=== PATIENT | male | born 1950 | race Caucasian/White ===

== ENCOUNTER 2016-12-08 08:21 | Outpatient (CLI) | payer MEDICARE, OTHER ==
[2016-12-08] VITALS (8 sets, daily range): BP systolic 97–132; BP diastolic 65–83
[~2016-12-08] VITALS: Ht 188 cm; Wt 103.4 kg
[~2016-12-08 08:21] MED LIST: ALPR0.254 PO; ASPI81TA2 PO; MELO-150 PO; MOME13HF2 IH; TAMS0.4C2 PO
[2016-12-08] MEDS ORDERED: LEVO5TAB29 PO (08:40)
[2016-12-08] MEDS ORDERED: MOME13HF IH (08:40)
[2016-12-08 08:51] LABS: BASO % 0 % (0-3); EOS % 1 % (0-3); HEMATOCRIT 49.1 % (39.0-53.0); HEMOGLOBIN 16.9 g/dL (13.0-17.5); LYMPH # 11.2 x10^3/uL (1.0-4.8); LYMPH % 80 % (24-48); MEAN CORPUSCULAR HEMOGLOBIN 34 pg (25-35); MEAN CORPUSCULAR HGB CONC 35 g/dL (31-37); MEAN CORPUSCULAR VOLUME 98 fL (79-100); MONO % 0 % (0-9); NEUT % 18 % (31-73); PLATELET COUNT 203 x10^3/uL (140-400); RED BLOOD COUNT 5.03 x10^6/uL (4.30-5.70); RED CELL DISTRIBUTION WIDTH 15.4 % (11.5-14.5)
[2016-12-08 09:04] LABS: PROTHROMBIN TIME PATIENT 12.5 SEC (11.7-14.0)
[2016-12-08] MEDS ORDERED: LIDOCAINE 1% / SOD BICARB 8.4% 20 ML VIAL. IJ ONE ×2 (09:40→10:15)
[2016-12-08 09:41] LABS: PLT ESTIMATE ADEQUATE (ADEQUATE)
[2016-12-08] MEDS ORDERED: MIDAZOLAM HCL/PF 5 MG/5 ML VIAL. ONE (09:46)
[2016-12-08] MEDS ORDERED: FLUMAZENIL 0.5 MG/5 ML VIAL. IV ONE (09:46)
[2016-12-08] MEDS ORDERED: fentaNYL PF VIAL 250 MCG/5 ML VIAL ONE (09:46)
[2016-12-08] MEDS ORDERED: NALOXONE 0.4 MG/ML VIAL. ONE (09:46)
[2016-12-08] MEDS ORDERED: MIDAZOLAM HCL/PF 5 MG/5 ML VIAL. IV ONE (10:15)
[2016-12-08] MEDS ORDERED: fentaNYL PF VIAL 250 MCG/5 ML VIAL IV ONE (10:15)
--- NOTE | 2016-12-08 10:19 | PDOC ---
MODERATE SEDATION ASSESSMENT RISKS/ALTERNATIVES Risks/Alternatives Risks and alternatives of this type of sedation and procedure discussed with: RISK/ALTERNATIVES: Patient H & P ON CHART H & P H & P on chart and reviewed for co-morbid conditions and appropriate labs. H&P ON CHART: Yes STATUS PREG STATUS ASSESSED: N/A MEDS/ALLERGIES REVIEWED Meds/Allergies Reviewed Medications and Allergies including time and route of recently administered narcotics and sedatives. MEDS/ALLERGIES REVIEWED: Yes ASA RATING ASA RATING: II AIRWAY ASSESSMENT Airway Assessment Airway patency, oral function limitations, presence of caps, crowns, dentures, partials, and ability to extend neck assessed. AIRWAY ASSESSMENT: Yes MALLAMPATI SCORE MALLAMPATI SCORE: II PRE-SEDATION ASSESSMENT PRE-SEDATION ASSESSMENT: Yes LIZ ASTORGA MD Dec 08, 2016 10:19
--- NOTE | 2016-12-08 10:22 | PDOC1 ---
History and Physical Date of Procedure Date of Admission 12/08/[address] guided bone marrow asp/bx Indication Indication 65 YO male with lymphocytosis---? CLL History of Present Illness Reason for Visit Same Past Medical History Past Medical History See Nursing Pre procedure PMH Past Surgical History Past Surgical History See Nursing Pre procedure PSH Current Medications Current Medications Current Medications Lidocaine/Sodium Bicarbonate (Buffered Lidocaine 1%) 20 ml STK-MED ONCE IJ ; Start 12/08/16 at 09:40; Stop 12/08/16 at 09:41; Status DC Midazolam HCl (Versed) 5 mg STK-MED ONCE .ROUTE ; Start 12/08/16 at 09:46; Stop 12/08/16 at 09:47; Status DC Fentanyl Citrate (Fentanyl 5ml Vial) 250 mcg STK-MED ONCE .ROUTE ; Start at 09:46; Stop 12/08/16 at 09:47; Status DC Naloxone HCl (Narcan) 0.4 mg STK-MED ONCE .ROUTE ; Start 12/08/16 at 09:46; Stop 12/08/16 at 09:47; Status DC Flumazenil (Romazicon) 0.5 mg STK-MED ONCE IV ; Start 12/08/16 at 09:46; Stop 12/08/16 at 09:47; Status DC Lidocaine/Sodium Bicarbonate (Buffered Lidocaine 1%) 10 ml 1X ONCE IJ Last administered on 12/08/16t 10:12; Start 12/08/16 at 10:15; Stop 12/08/16 at 10:16; Status DC Midazolam HCl (Versed) 3 mg 1X ONCE IV Last administered on 12/08/16 10:13; Start 12/08/16 at 10:15; Stop 12/08/16 at 10:16; Status DC Fentanyl Citrate (Fentanyl 5ml Vial) 150 mcg 1X ONCE IV Last administered on 10:13; Start 12/08/16 at 10:15; Stop 12/08/16 at 10:16; Status DC Active Scripts Active Reported Xyzal (Levocetirizine Dihydrochloride) 5 Mg Tablet 5 Mg PO DAILY PRN Dulera 200 Mcg/5 Mcg Inhaler (Mometasone/Formoterol) 13 Gm Hfa.aer.ad 13 Gm IH BID Meloxicam 15 Mg Tablet 15 Mg PO DAILY Tamsulosin Hcl 0.4 Mg Cap.er.24h 0.4 Mg PO DAILY Allergies Allergies: Coded Allergies: No Known Drug Allergies (Unverified , 05/18/15) Physical Exam Vital Signs Vital Signs Date Time Temp Pulse Resp B/P (MAP) Pulse Ox O2 Delivery O2 Flow Rate FiO2 12/08/16 10:13 12 94 Nasal Cannula 3.0 12/08/16 10:09 69 12/08/16 09:12 98.6 132/83 (99) 98.6 Lungs: Clear to auscultation Heart: Regular rate Psych/Mental Status: Mental status NL Assessment Assessment 65 YO male with lymphocytosis, raising ? of CLL. Problems: Plan Plan CT guided bone marrow aspirate/bx, as requested by heme-ocn. LIZ ASTORGA MD Dec 08, 2016 10:22
--- NOTE | 2016-12-08 10:24 | PDOC ---
Exam Tongue Trimmer Tongue Trimmer Wilberto [employer] Freight Conductor Freight Isabell Pan Pre-Procedure Diagnosis Pre-Procedure Diagnosis 65 YO male with lymphocytosis---? CLL. Post-Procedure Diagnosis Post-Procedure Diagnosis Same Procedure Performed Procedure Performed CT guided bone marrow asp/bx Type of Anesthesia Type of Anesthesia Local + Mod sedation Estimated Blood Loss EBL: Minimal Specimens Specimans 6 cc bone marrow aspirate + 1 11G core bx-----to heme-path Condition of Patient Condition of Patient Stable. No apparent complication. Disposition Disposition Home from [facility] post recovery, if no problems. F/u with Dr Jean. Full report to follow. LIZ ASTORGA MD Dec 08, 2016 10:24
--- NOTE | 2016-12-08 12:08 | RAD ---
CT-guided power drill assisted bone marrow aspiration and biopsy Indication: 65-year-old male with lymphocytosis. CT-guided bone marrow aspirate/biopsy has been requested by hematology-oncology, to evaluate for CLL. Anesthesia: 30 minutes moderate sedation was provided utilizing a total of 3 mg Versed and 150 mcg fentanyl, IV. The patient was appropriately monitored by a qualified independent observer throughout the time of moderate sedation. Procedure: Informed consent was obtained from the patient. He was placed prone on the CT scanner. Preliminary noncontrast CT images were obtained through pelvis. A left posterior skin site suitable for CT-guided bone marrow aspirate/biopsy from posterior left iliac bone was selected and marked. That area was prepped and draped in the usual sterile fashion. Conscious sedation was provided with IV Versed and fentanyl. Using aseptic technique, local anesthesia, and CT guidance, and the [employer] power furniture delivery driver, successful percutaneous entry was achieved through posterior cortex of left iliac bone. Approximately 6 cc of bone marrow was promptly aspirated, and was submitted to hematology personnel in the CT suite. Using CT guidance, the [employer] power furniture delivery driver was then utilized to obtain a single, 11-gauge core biopsy sample from marrow cavity of left iliac bone. The biopsy sample was submitted to pathology in formalin. A sterile dressing was applied over the biopsy skin puncture site. Patient tolerated the procedure well without apparent complication. Impression: Successful, uneventful CT-guided bone marrow aspirate and biopsy, utilizing the [employer] power furniture delivery driver biopsy system, as described. PQRS compliance statement: One or more of the following individualized dose reduction techniques were utilized for this CT procedure: 1. Automated exposure control. 2. Adjustment of MA and/or KV according to patient size. 3. Iterative reconstruction technique.
== END 2016-12-08 11:02 | disposition home or self-care (01) ==
LOC: INTRAD 08:21
PROVIDERS: ATTEND Internal Medicine Hematology & Oncology
DX: D72.820 Lymphocytosis (symptomatic) (principal); J44.9 Chronic obstructive pulmonary disease, unspecified; J45.909 Unspecified asthma, uncomplicated; M19.90 Unspecified osteoarthritis, unspecified site; F41.9 Anxiety disorder, unspecified; Z72.89 Other problems related to lifestyle; Z79.01 Long term (current) use of anticoagulants
CPT/HCPCS: 36415; 38221; 77012; 85007; 85027; 85610; 88184; 88185; 88237; C1892; G0364; J2250; J3010

== ENCOUNTER 2017-07-01 11:29 | Emergency (ER) | payer MEDICARE, OTHER | END 2017-07-01 14:06 | disposition home or self-care (01) | LOC: ER 11:29 | DX: T80.1XXA Vascular complications following infusion, transfusion and therapeutic injection, initial encounter (principal); Y84.8 Other medical procedures as the cause of abnormal reaction of the patient, or of later complication, without mention of misadventure at the time of the procedure; Y92.89 Other specified places as the place of occurrence of the external cause | CPT/HCPCS: 93971; 99284-25 ==

== ENCOUNTER → 2017-08-21 | Outpatient (CLI) | payer MEDICARE, OTHER ==
[2017-08-21] MEDS: IOHEXOL 240 MG/ML 50ML VIAL. PO ×2 (11:45)
[2017-08-21] MEDS: IOHEXOL 300 MG/ML 100ML VIAL. IV ×2 (11:45)
== END | disposition home or self-care (01) ==
LOC: CT 11:10
DX: C67.8 Malignant neoplasm of overlapping sites of bladder (principal); J90 Pleural effusion, not elsewhere classified; J43.9 Emphysema, unspecified; I70.0 Atherosclerosis of aorta; K42.9 Umbilical hernia without obstruction or gangrene; R91.1 Solitary pulmonary nodule; R59.0 Localized enlarged lymph nodes; Z87.891 Personal history of nicotine dependence
CPT/HCPCS: 71260; 74177; Q9966; Q9967

== ENCOUNTER → 2017-09-01 | Outpatient (CLI) | payer MEDICARE, OTHER | END | disposition home or self-care (01) | LOC: US 15:18 | DX: M79.89 Other specified soft tissue disorders (principal); R60.0 Localized edema | CPT/HCPCS: 93971 ==

== ENCOUNTER → 2018-01-25 | Outpatient (CLI) | payer MEDICARE, OTHER ==
[~2018-01-25] MED LIST changes: -ALPR0.254 PO; -ASPI81TA2 PO; +CONTRAST GIVEN. MC; -MELO-150 PO; -MOME13HF2 IH; -TAMS0.4C2 PO
[2018-01-25 08:46] LABS: POC GLUCOSE 95 mg/dL (70-99)
[2018-01-25] MEDS: IOHEXOL 300 MG/ML 100ML VIAL. IV (09:00)
[2018-01-25] MEDS: IOHEXOL 240 MG/ML 50ML VIAL. PO (09:00)
== END | disposition home or self-care (01) ==
LOC: CT 07:47
DX: C67.8 Malignant neoplasm of overlapping sites of bladder (principal); J43.2 Centrilobular emphysema; N40.0 Benign prostatic hyperplasia without lower urinary tract symptoms; K76.0 Fatty (change of) liver, not elsewhere classified; I25.10 Atherosclerotic heart disease of native coronary artery without angina pectoris; R91.1 Solitary pulmonary nodule; R59.0 Localized enlarged lymph nodes; Z85.118 Personal history of other malignant neoplasm of bronchus and lung; Z87.891 Personal history of nicotine dependence
CPT/HCPCS: 71260; 74177; 82962; Q9966; Q9967

== ENCOUNTER → 2018-07-25 | Outpatient (CLI) | payer MEDICARE, OTHER ==
[2017-10-25 11:00] VITALS: BP 122/65
[~2018-07-25] MED LIST changes: +ALPR0.254 PO; +ASPI-630 PO; -CONTRAST GIVEN. MC; +HYDR-3164 PO; +IOHEXOL 240 MG/ML 50ML VIAL. PO ONE; +IOHEXOL 300 MG/ML 100ML VIAL. IV ONE; +LEVO5TAB29 PO; +MELO15TA23 PO; +MOME13HF IH; +MOME13HF2 IH; +TAMS0.4C2 PO
--- NOTE | 2018-07-25 16:53 | RAD ---
CT of the chest, abdomen and pelvis with contrast, 07/25/2018: HISTORY: Lung cancer, bladder cancer, leukemia Multidetector CT imaging was performed following oral and IV administration of contrast. Comparison is made to a study from 01/25/2018. There are emphysematous changes in the lungs with scattered parenchymal scars. A 7 mm soft tissue nodule in the right middle lobe is unchanged since the previous study. No new pulmonary nodularity or infiltrate is seen. Previously seen right-sided pleural fluid has nearly completely resolved. There is mild residual pleural thickening in the posterior costophrenic angle on the right. There is bilateral axillary adenopathy. These nodes have increased in size. The largest lymph node on the left measures 2.7 cm in short axis dimension compared to a measurement of 2 cm on the previous study. The largest lymph node on the right measures 1.9 x 3.2 cm compared to a measurement of 1.1 x 2.4 cm on the previous study. There are multiple small mediastinal and bilateral hilar lymph nodes which appear unchanged. A cluster in the subcarinal region measures 1.3 cm in short axis dimension, similar to that seen on the previous study. The other smaller lymph nodes also appear stable. Moderate coronary artery calcifications are present. No hepatic abnormality is seen. The gallbladder is unremarkable. The pancreas shows no abnormality. The spleen is of normal size. No renal or adrenal abnormality is detected. There are numerous enlarged retroperitoneal, mesenteric and bilateral iliac lymph nodes which have generally increased in size. The largest individual mesenteric lymph nodes now measure nearly 3 cm in diameter. A left external iliac node which measured 2.1 x 3.8 cm on the previous study now measures 2.8 x 4.0 cm. There is moderate aortoiliac calcific plaquing. The prostate gland is moderately enlarged. The bowel loops are not distended. No free fluid is evident in the abdomen or pelvis. Moderate multilevel hypertrophic degenerative changes are present in the spine. IMPRESSION: 1. Worsening bilateral axillary, retroperitoneal, mesenteric and pelvic adenopathy. 2. Stable small right middle lobe pulmonary nodule. 3. Stable mild mediastinal adenopathy. 4. Resolution of the previously seen small right pleural effusion. 5. Emphysema with pleural/parenchymal scarring. 6. Nonspecific prostatic enlargement. PQRS Compliance Statement: One or more of the following individualized dose reduction techniques were utilized for this examination: 1. Automated exposure control 2. Adjustment of the mA and/or kV according to patient size 3. Use of iterative reconstruction technique Electronically signed by: Sterling Pederson MD (07/25/2018 4:49 PM) [facility]
== END | disposition home or self-care (01) ==
LOC: CT 08:24
PROVIDERS: ATTEND Internal Medicine Hematology & Oncology
DX: C34.11 Malignant neoplasm of upper lobe, right bronchus or lung (principal); J43.8 Other emphysema; R91.1 Solitary pulmonary nodule; I25.10 Atherosclerotic heart disease of native coronary artery without angina pectoris; N40.0 Benign prostatic hyperplasia without lower urinary tract symptoms; Z88.8 Allergy status to other drugs, medicaments and biological substances; Z87.891 Personal history of nicotine dependence
CPT/HCPCS: 71260; 74177; Q9966; Q9967

== ENCOUNTER → 2018-08-23 | Outpatient (CLI) | payer MEDICARE, OTHER ==
[2017-10-25 11:00] VITALS: BP 122/65
[~2018-08-23] MED LIST changes: -IOHEXOL 240 MG/ML 50ML VIAL. PO ONE; -IOHEXOL 300 MG/ML 100ML VIAL. IV ONE
--- NOTE | 2018-08-23 14:46 | RAD ---
FDG tumor localization scan, PET/CT, 08/23/2018: History: Restaging lung cancer Following IV injection of 12.0 mCi of 18 F-FDG, imaging was performed from the skull base to the proximal thighs. The noncontrast CT component was performed for attenuation correction and anatomic localization purposes rather than for primary diagnosis. The patient's blood glucose level at the time of injection was 102 MG/DL. No previous FDG/PET study is available at this time for comparison purposes. There are multiple enlarged hypermetabolic lymph nodes in both axillary regions, left greater than right. The largest individual node on the left axilla is a lobulated 4.3 cm node demonstrating a maximum SUV of 10.5. This node measured approximately 4.[address] chest study 07/25/2018. Some of the other nodes also appear to have increased slightly in size. There are additional smaller hypermetabolic supraclavicular and cervical lymph nodes bilaterally. Several small mediastinal and hilar lymph nodes are slightly hypermetabolic, best seen in the subcarinal and left hilar regions, with maximum SUVs of approximately 3.6. Normal GI tract and urinary tract activity is present in the abdomen and pelvis. Normal heterogeneous hepatic FDG uptake is evident. There are numerous hypermetabolic mesenteric, retroperitoneal and pelvic adenopathy bilaterally. For example a cluster of hypermetabolic lymph nodes at the left external iliac level demonstrates a maximum SUV of 6.5 with the largest of these in individual nodes measuring 4.[address] findings include the presence of moderate emphysematous change and scarring in the lungs. There is an unchanged 8 mm right middle lobe pulmonary nodule which is not hypermetabolic. Coronary artery calcifications are present. There is moderate nonspecific prostatic enlargement. IMPRESSION: 1. Extensive hypermetabolic abdominal, pelvic and axillary adenopathy with a lesser degree of hypermetabolic adenopathy in the mediastinum and neck. The findings suggest metastatic disease versus lymphoma. Many of these nodes have increased slightly in size since 07/25/2018 CT exam. 2. Stable small right middle lobe pulmonary nodule which is not hypermetabolic.
== END | disposition home or self-care (01) ==
LOC: PETSC 12:00
PROVIDERS: ATTEND Internal Medicine Hematology & Oncology
DX: C34.11 Malignant neoplasm of upper lobe, right bronchus or lung (principal); C91.90 Lymphoid leukemia, unspecified not having achieved remission; N40.0 Benign prostatic hyperplasia without lower urinary tract symptoms; J43.9 Emphysema, unspecified; I25.10 Atherosclerotic heart disease of native coronary artery without angina pectoris
CPT/HCPCS: 78815; A9552

== ENCOUNTER 2018-09-05 05:54 | Day surgery (SDC) | payer MEDICARE, OTHER ==
[~2018-09-05] VITALS: Ht 185.4 cm; Wt 114.3 kg
[2018-09-05] MEDS ORDERED: PROPOFOL 20 ML IV ONE (06:59)
[2018-09-05] MEDS ORDERED: DEXAMETHASONE SOD PHOS 20 MG/5 ML VIAL. ONE (06:59)
[2018-09-05] MEDS ORDERED: ONDANSETRON PF 4 MG/2 ML VIAL. ONE (06:59)
[2018-09-05] MEDS ORDERED: LIDOCAINE 2% PF 5 ML VIAL. ONE (06:59)
[2018-09-05] MEDS ORDERED: HYDROmorphone 2 MG/ML VIAL IV PRN (07:00)
[2018-09-05] MEDS ORDERED: PROCHLORPERAZINE 10 MG/2 ML VIAL. IV PRN (07:00)
[2018-09-05] MEDS ORDERED: fentaNYL PF VIAL 100 MCG/2 ML VIAL IV PRN (07:00)
[2018-09-05] MEDS ORDERED: ONDANSETRON PF 4 MG/2 ML VIAL. IV PRN (07:00)
[2018-09-05] MEDS ORDERED: IV RINGERS,LACTATED 1000ML 1,000 ML IV SCH (07:00)
[2018-09-05] MEDS ORDERED: LIDOCAINE 1% PF 2 ML VIAL. ID PRN (07:00)
[2018-09-05] MEDS ORDERED: MORPHINE SULFATE 4 MG/ML VIAL. IV PRN (07:00)
[2018-09-05] MEDS ORDERED: ISOSULFAN BLUE 50 MG/5 ML VIAL. SQ ONE (07:02)
[2018-09-05] MEDS ORDERED: SEVOFLURANE > 120 MINUTES. IH ONE (07:25)
[2018-09-05] MEDS ORDERED: fentaNYL PF VIAL 100 MCG/2 ML VIAL ONE ×2 (07:32→08:41)
--- NOTE | 2018-09-05 08:24 | PDOC4 ---
Operative Note Operative Note Operative Note: Preoperative Diagnosis: Lymphadenopathy Postoperative Diagnosis: Same Procedure: Left axillary lymph node biopsy Surgeon: Ricky Doll Dresser: Nereyda JOHNSON Anesthesia: Gen. EBL: 25 mL Specimen: Left axillary lymph node to pathology Drains: None Complications: None Indication: The patient is a 67-year-old male who has a known history of CLL. He developed recently widespread lymphadenopathy and a request is made for lymph node biopsy for tissue diagnosis. The adenopathy is particular prominent in the left axilla and we will therefore proceed with a biopsy in that location. The risks of surgery were discussed with the patient which include bleeding, infection, swelling, seroma, pain, potential need for additional surgery or procedure. He understands and would like to proceed Description: The patient was taken to the operating room and placed supine on the operating table. Gen. anesthesia was performed. The left axilla was prepped with ChloraPrep and draped in a standard surgical manner. An incision was made in the skin with a scalpel. Cautery dissection was carried down into the subcutaneous tissues. There were fairly obvious significantly enlarged lymph nodes present. Cautery dissection was used to mobilize a plastic products sales representative lymph node. In reality we likely excised two conjoined lymph nodes. The lymph nodes were mobilized from the surrounding structures with cautery. The vascular pedicle was ligated with 2-0 Vicryl and the lymph nodes were fully excised. These were sent to pathology for evaluation. Hemostasis was achieved with cautery. There were some remaining palpably enlarged lymph nodes however no other abnormalities noted. The subcutaneous tissue was closed with 3-0 Vicryl. The skin was closed with 4-0 Monocryl. The incision was infiltrated with half percent Marcaine with epinephrine. A Steri-Strip and sterile dressing were applied. The patient tolerated the procedure well and was sent to the recovery room in stable condition. At the end of the case all counts were correct. KIESHA EDUARDO MD Sep 05, 2018 08:24
--- NOTE | 2018-09-05 08:33 | DISCH ---
DISCHARGE INSTRUCTIONS Condition on Discharge Condition on Discharge: Stable Activity After Discharge Activity Instructions for Disc: Resume previous activity Diet after Discharge Diet after Discharge: Regular Wound Incision Care Wound/Incision Care: Other, see below (keep dressing clean and dry X 72 hours, may then remove and shower) Follow-Up Follow up with: Dr Eduardo in office in1 week, call for appt, KIESHA EDUARDO MD Sep 05, 2018 08:33
[2018-09-05] MEDS: fentaNYL PF VIAL 100 MCG/2 ML VIAL IV PRN ×2 (08:42→08:56)
[2018-09-05] MEDS ORDERED: HYDR-3164 PO (08:55)
[2018-09-05] MEDS ORDERED: HYDROcodone/APAP 5/325MG 1 TAB TABLET PO ONE (09:00)
[2018-09-05] MEDS ORDERED: HYDROcodone/APAP 5/325MG 1 TAB TABLET ONE (09:03)
[2018-09-05 09:25] VITALS: BP 111/76
--- NOTE | 2018-09-07 17:10 | PATHOLOGY ---
[facility] Accession Number: [id number] . 01 Material submitted: . LEFT AXILLARY LYMPH NODE . 01 Clinical history: . CLL/adenopathy . 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 LBQ/09/06/2018 . 02 Comment: Sections of the left axillary lymph node biopsy reveal four enlarged lymph nodes with focal attached perinodal fatty tissue. All of the lymph nodes appear similar and show diffuse mark effacement by an atypical lymphoid proliferation comprised of fairly uniform appearing small lymphocytes. The small lymphocytes have a high N/C ratio and rounded to slightly irregular hyperchromatic nuclei. There are fairly regularly distributed pale proliferation centers within the atypical lymphoid proliferation which contain admixed larger prolymphocytes. The atypical lymphoid proliferation focally spills out into the perinodal soft tissues. . A portion of the specimen was submitted for marker studies by flow cytometry. This has a viability of 99.1%. Lymphocytes comprise 99.5% of total cells. T-cells comprise 8.5% of total cells and show a CD4/CD8 ratio of 2.1. There is a population of small monoclonal B-cells which comprise 90.5% of total cells and are positive for CD5, CD11c, CD19, CD20 (dim), and CD23 and show dim kappa light chain restriction. . To confirm flow cytometric findings and characterize the target cells in a tissue architectural context, a limited panel of immunoperoxidase stains is obtained on block A2 and yields the following results: . CD20: Atypical small lymphoid proliferation positive PAX5: Atypical small lymphoid proliferation positive CD3: Atypical small lymphoid proliferative negative; small population of admixed small T-lymphocytes positive CD5: Atypical small lymphoid proliferation shows co-expression of CD5 CD23: Atypical small lymphoid proliferation positive Cyclin D1: Atypical small lymphoid proliferation negative . The morphologic and immunophenotypic findings are supportive of the diagnosis of mark involvement by B-cell chronic lymphocytic leukemia/small lymphocytic lymphoma. There is no evidence of transformation to large cell lymphoma. . (JPM/db/juana; 09/07/2018) . Special stains performed: Immunoperoxidase stains for CD20, PAX5, CD3, CD5, CD23, and cyclin D1 on A2 . 02 Electronically signed: . eBtito Rojas MD, Pathologist NPI- [id number] . 01 Gross description: . The specimen is received fresh and is designated "left axillary lymph node". This consists of two apparent enlarged pink-borjas lymph nodes with focal attached yellow-red fatty tissue. The smaller measures up to 4.7 cm in greatest dimension. The largest measures up to 6.4 x 3.5 x 2.3 cm in greatest dimension. Sectioning of the smaller specimen reveals a borjas fleshy cut surface. A touch preparation is prepared and submitted for H and E staining. Sectioning of the larger segment reveals three enlarged lymph nodes ranging from 2.0 cm up to 3.3 cm in greatest dimension. These lymph nodes also have a borjas fleshy cut surface. A touch preparation is prepared and submitted for H and E staining. A assisted sales representative portion from each of the nodes is submitted together in RPMI for lymphocyte marker studies by flow cytometry. Rn Recovery sections from the smaller node are submitted as A1 and A2. Rn Recovery sections from the larger segment containing three enlarged lymph nodes are submitted as A3-A5. (JPM:juana; 09/05/2018) /TOB . 02 Pathologist provided ICD-10: C91.10, C85.14 . 02 CPT . 026375, Q33870, L71974 Specimen Comment: A courtesy copy of this report has been sent to Specimen Comment: [phone], , . Specimen Comment: Report sent to ,DR RAMSEY / DR JIM Performed at: 01 [facility] [address], [place] [id number] MD Rahul Gilmore MD Phone: [phone] Performed at: 02 [facility] [address] [place], [place] [id number] MD Betito Rojas MD Phone: [phone]
== END 2018-09-05 09:28 | disposition home or self-care (01) ==
LOC: SURG 05:54
PROVIDERS: ATTEND Surgery
DX: C91.10 Chronic lymphocytic leukemia of B-cell type not having achieved remission (principal); I10 Essential (primary) hypertension; J44.9 Chronic obstructive pulmonary disease, unspecified; Z85.828 Personal history of other malignant neoplasm of skin; Z85.51 Personal history of malignant neoplasm of bladder; Z90.49 Acquired absence of other specified parts of digestive tract; Z98.890 Other specified postprocedural states; Z96.653 Presence of artificial knee joint, bilateral; Z82.49 Family history of ischemic heart disease and other diseases of the circulatory system; Z87.891 Personal history of nicotine dependence; Z88.5 Allergy status to narcotic agent; Z88.8 Allergy status to other drugs, medicaments and biological substances; Z85.118 Personal history of other malignant neoplasm of bronchus and lung
CPT/HCPCS: 38525; 88184; 88185; A7015; J0696; J1100; J2001; J2405; J2704; J3010; Q9968; 88307; 88341; 88342

== ENCOUNTER → 2019-03-28 | Outpatient (CLI) | payer MEDICARE, OTHER ==
[~2019-03-28] MED LIST changes: +CONTRAST GIVEN. MC PRN; +IOHEXOL 240 MG/ML 50ML VIAL. PO ONE; +IOHEXOL 300 MG/ML 100ML VIAL. IV ONE
--- NOTE | 2019-03-28 15:12 | RAD ---
EXAM: CT Chest, Abdomen and Pelvis with IV contrast CLINICAL HISTORY: CHRONIC LYMPHOCYTIC LEUKEMIA COMPARISON: None. TECHNIQUE: Helical CT of the chest, abdomen and pelvis was performed following the administration of intravenous contrast. Axial, coronal and sagittal reformatted images were generated. ---PQRS compliance statement - One or more of the following individualized dose reduction techniques were utilized for this study: 1. Automated exposure control 2. Adjustment of the mA and/or kV according to patient size 3. Use of iterative reconstruction technique--- FINDINGS: Chest: Compared to prior CT 07/25/2018, the degree of axillary lymphadenopathy has decreased. For example a left axillary lymph node measuring 1.2 cm short axis previously measured 2.7 cm. A right axillary lymph node measures 9 mm short axis, previously 1.8 cm short axis. Mildly prominent subcarinal lymph nodes have also mildly decreased in size. A 1.6 x 1.4 cm right infrahilar lymph node is seen, previously 2.7 x 1.7 cm. Emphysematous changes are seen. Chronic right lung lobectomy changes are seen. Linear and wedge-shaped opacities in the middle lobe likely scarring/atelectasis. A 7 mm middle lobe lung nodule is grossly stable. No pleural effusion or pneumothorax. Mild cardiomegaly. Aneurysmal dilatation of the ascending aorta measuring 4.2 cm is stable. Coronary artery calcifications are seen. Abdomen and Pelvis: No focal liver lesion. Hepatic hypoattenuation, likely hepatic steatosis. Gallbladder is normal. No biliary ductal dilatation. Spleen is unremarkable. Adrenal glands and pancreas are unremarkable. Symmetric nephrograms. No focal renal lesion. No hydronephrosis. Prostate is enlarged measuring 5.7 cm in transverse dimension. Focal nodular thickening of the left bladder, nonspecific and although may represent hemorrhagic products, underlying bladder mass is not excluded (series 8 image 76). There has been an appendectomy. No small or large bowel dilatation. Moderate colonic stool content. Fat-containing periumbilical hernia is seen with small volume fluid. Retroperitoneal, iliac chain and mesenteric lymph nodes are enlarged, but significantly decreased in size. For example a left external iliac lymph node measures 1.4 cm, previously 2.8 cm. Bones: Degenerative changes of spine, SI joints. No definite aggressive osseous lesion is seen. IMPRESSION: 1. Interval decrease in thoracic, abdominal and pelvic lymphadenopathy suggesting favorable response. 2. Nodular thickening at the left aspect of the bladder, although may represent focal hemorrhagic products, underlying bladder mass would have similar appearance. 3. Prostate is enlarged. Electronically signed by: Delio Zepeda MD (03/28/2019 3:09 PM) [facility]
== END | disposition home or self-care (01) ==
LOC: CT 08:19
PROVIDERS: ATTEND Internal Medicine Hematology & Oncology
DX: C34.11 Malignant neoplasm of upper lobe, right bronchus or lung (principal); C91.90 Lymphoid leukemia, unspecified not having achieved remission; J43.9 Emphysema, unspecified; N40.0 Benign prostatic hyperplasia without lower urinary tract symptoms; K42.9 Umbilical hernia without obstruction or gangrene; R59.0 Localized enlarged lymph nodes; I51.7 Cardiomegaly; I25.10 Atherosclerotic heart disease of native coronary artery without angina pectoris; Z88.8 Allergy status to other drugs, medicaments and biological substances; Z90.49 Acquired absence of other specified parts of digestive tract
CPT/HCPCS: 71260; 74177; Q9966; Q9967

== ENCOUNTER 2019-04-16 12:18 | Emergency (ER) | payer MEDICARE, OTHER ==
[~2019-04-16] VITALS: Ht 188 cm; Wt 112.9 kg
[~2019-04-16 12:18] MED LIST changes: -CONTRAST GIVEN. MC PRN; -IOHEXOL 240 MG/ML 50ML VIAL. PO ONE; -IOHEXOL 300 MG/ML 100ML VIAL. IV ONE
[2019-04-16 12:50] LABS: BILIRUBIN,URINE NEGATIVE (NEG); CLARITY,URINE CLEAR; NITRITE,URINE NEGATIVE (NEG); PH,URINE 7.5; PROTEIN,URINE NEGATIVE (NEG-TRACE); UROBILINOGEN,URINE 0.2 mg/dL (0.2 mg/dL)
[2019-04-16 12:57] LABS: COLOR,URINE RED
[2019-04-16 12:58] LABS: RBC,URINE TNTC /HPF (0-2)
[2019-04-16 12:59] LABS: HYALINE CASTS, URINE FEW /HPF
[2019-04-16 13:00] LABS: BACTERIA,URINE 0 /HPF (0-FEW)
[2019-04-16] MEDS ORDERED: CIPR250T30 PO (13:18)
--- NOTE | 2019-04-16 13:18 | PHYS DOC ---
Past Medical History Past Medical History: Cancer Additional Past Medical Histor: LUNG CA,CLL,BLADDERCA, SKINCA Past Surgical History: Cancer Surgery, Knee Replacement Additional Past Surgical Histo: HERNIA,TUMOR FROM BLADDER, BACK, LUNG CA, L KNEE REPLACEMENT, RT UP LOBECTO Alcohol Use: None Drug Use: None Adult General Chief Complaint Chief Complaint: URINARY RETENTION [facility] HPI Patient is a 68 year old male who presents with complaining of unable to urinate. Patient states he had prostate problem and had prostate surgery last week at [facility] and today his Almanza catheter was removed at [facility] this morning and he was able to urinate and was discharged home. Patient states he took water pills and since 10 AM was not able to urinate. Patient is diaphoretic and chest and complaining of severe suprapubic pain and discomfort. Review of Systems Review of Systems Constitutional: Denies fever or chills [] Eyes: Denies change in visual acuity, redness, or eye pain [] HENT: Denies nasal congestion or sore throat [] Respiratory: Denies cough or shortness of breath [] Cardiovascular: No additional information not addressed in HPI [] GI: Denies abdominal pain, nausea, vomiting, bloody stools or diarrhea [] : Denies dysuria or hematuria [] Musculoskeletal: Denies back pain or joint pain [] Integument: Denies rash or skin lesions [] Neurologic: Denies headache, focal weakness or sensory changes [] Endocrine: Denies polyuria or polydipsia [] All other systems were reviewed and found to be within normal limits, except as documented in this note. Allergies Allergies Allergies Coded Allergies Type Severity Reaction Last Updated Verified oxycodone Allergy Intermediate RASH 09/05/18 Yes rituximab Allergy Intermediate Hives 09/05/18 Yes Physical Exam Physical Exam Constitutional: Well developed, well nourished, distress, non-toxic appearance. [] HENT: Normocephalic, atraumatic. Eyes: PERRLA, EOMI, conjunctiva normal, no discharge. [] Neck: Normal range of motion, no tenderness, supple, no stridor. [] Cardiovascular:Heart rate regular rhythm, no murmur [] Lungs & Thorax: Bilateral breath sounds clear to auscultation [] Abdomen: Bowel sounds normal, soft, suprapubic tenderness , no tenderness, no masses, no pulsatile masses. [] Skin: Diaphoretic Back: No tenderness, no CVA tenderness. [] Extremities: No tenderness, no cyanosis, no clubbing, ROM intact, no edema. [] Neurologic: Alert and oriented X 3, no focal deficits noted. [] Psychologic: Affect normal, judgement normal, mood normal. [] Current Patient Data Vital Signs Vital Signs Date Time Temp Pulse Resp B/P (MAP) Pulse Ox O2 Delivery O2 Flow Rate FiO2 04/16/19 13:23 92 17 92 04/16/19 12:20 97.7 158/98 (118) Room Air 97.7 Lab Values Laboratory Tests Test 04/16/19 12:36 Urine Collection Type Unknown Urine Color Red Urine Clarity Clear Urine pH 7.5 Urine Specific Peyton 1.010 Urine Protein Negative mg/dL (NEG-TRACE) Urine Glucose (UA) Negative mg/dL (NEG) Urine Ketones (Stick) Negative mg/dL (NEG) Urine Blood Large (NEG) Urine Nitrite Negative (NEG) Urine Bilirubin Negative (NEG) Urine Urobilinogen Dipstick 0.2 mg/dL (0.2 mg/dL) Urine Leukocyte Esterase Trace (NEG) Urine RBC Tntc /HPF (0-2) Urine WBC 11-20 /HPF (0-4) Urine Bacteria 0 /HPF (0-FEW) Urine Hyaline Casts Few /HPF Urine Mucus Slight /LPF EKG EKG [] Radiology/Procedures Radiology/Procedures [] Course & Med Decision Making Course & Med Decision Making Pertinent Labs reviewed. (See chart for details) Evaluation of patient in ER showed 68-year-old male patient with complaining of urinary retention after removing Almanza catheter after prostate surgery. Patient was diaphoretic and discomfort and 40 3 was placed with drainage of 650 ml of pink urine with improvement of his condition. Patient was sent home with Almanza catheter in place and was advised to follow up with his primary care physician and urologist. Dragon Disclaimer Dragon Disclaimer This electronic medical record was generated, in whole or in part, using a voice recognition dictation system. Departure Departure Impression: Primary Impression: Urinary retention Additional Impression: Hematuria Disposition: HOME, SELF-CARE (at 1316) Condition: IMPROVED Referrals: ROLO RAMSEY MD (PCP) Patient Instructions: Almanza Catheter Care, Adult, Urinary Retention, Acute, Male Additional Instructions: Follow-up with your urologist in one or 2 days Return to ER if not getting better Scripts Ciprofloxacin Hcl (CIPRO) 250 Mg Tablet 1 TAB PO BID for infection, #14 TAB Prov: HUONG SILVA MD 04/16/19 Problem Qualifiers Additional Impression: Hematuria Hematuria type: gross Qualified Codes: R31.0 - Gross hematuria HUONG SILVA MD Apr 16, 2019 13:18
[2019-04-16 13:23] VITALS: BP 107/70
== END 2019-04-16 13:31 | disposition home or self-care (01) ==
LOC: ER 12:18
DX: R31.0 Gross hematuria (principal); R33.9 Retention of urine, unspecified; Z98.890 Other specified postprocedural states; Z88.5 Allergy status to narcotic agent; Z88.8 Allergy status to other drugs, medicaments and biological substances
CPT/HCPCS: 51702; 81001; 87086; 99285-25

== ENCOUNTER 2019-04-24 06:55 | Emergency (ER) | payer MEDICARE, OTHER ==
[~2019-04-24] VITALS: Ht 188 cm; Wt 117.0 kg
[~2019-04-24 06:55] MED LIST changes: +CIPR250T30 PO
--- NOTE | 2019-04-24 08:02 | PHYS DOC ---
Past Medical History Past Medical History: Cancer, Prostatitis Additional Past Medical Histor: LUNG CA,CLL,BLADDERCA, SKINCA Past Surgical History: Cancer Surgery, Knee Replacement Additional Past Surgical Histo: HERNIA,TUMOR FROM BLADDER, BACK, LUNG CA, L KNEE REPLACEMENT, RT UP LOBECTO Alcohol Use: None Drug Use: None Adult General Chief Complaint Chief Complaint: URINE CATHETER PROBLEM HPI HPI Patient is a 68 year old male with Almanza catheter in place who presents with complaining of problem with his catheter. Patient had prostate procedure recently and had Almanza catheter placement that was removed yesterday by his urologist [facility] but was not able to urinate for 5 hours and another Almanza catheter was placed was stopped working since last night with mild amount of leaking urine around the catheter. Patient complaining of pressure feeling in specific area without nausea and vomiting and fever and chills. Review of Systems Review of Systems Constitutional: Denies fever or chills [] Eyes: Denies change in visual acuity, redness, or eye pain [] HENT: Denies nasal congestion or sore throat [] Respiratory: Denies cough or shortness of breath [] Cardiovascular: No additional information not addressed in HPI [] GI: Denies nausea, vomiting, bloody stools or diarrhea, reports abdominal pain [] : Reports hematuria Musculoskeletal: Denies back pain or joint pain [] Integument: Denies rash or skin lesions [] Neurologic: Denies headache, focal weakness or sensory changes [] Endocrine: Denies polyuria or polydipsia [] All other systems were reviewed and found to be within normal limits, except as documented in this note. Allergies Allergies Allergies Coded Allergies Type Severity Reaction Last Updated Verified oxycodone Allergy Intermediate RASH 09/05/18 Yes rituximab Allergy Intermediate Hives 09/05/18 Yes Physical Exam Physical Exam Constitutional: Well developed, well nourished, mild distress, non-toxic appearance. [] HENT: Normocephalic, atraumatic. Eyes: PERRLA, EOMI, conjunctiva normal, no discharge. [] Neck: Normal range of motion, no tenderness, supple, no stridor. [] Cardiovascular:Heart rate regular rhythm, no murmur [] Lungs & Thorax: Bilateral breath sounds clear to auscultation [] Abdomen: Bowel sounds normal, soft, suprapubic guarding, no tenderness, no masses, no pulsatile masses Almanza catheter in place without urine output Skin: Warm, dry, no erythema, no rash. [] Back: No tenderness, no CVA tenderness. [] Extremities: No tenderness, no cyanosis, no clubbing, ROM intact, no edema. [] Neurologic: Alert and oriented X 3, no focal deficits noted. [] Psychologic: Affect normal, judgement normal, mood normal. [] Current Patient Data Vital Signs Vital Signs Date Time Temp Pulse Resp B/P (MAP) Pulse Ox O2 Delivery O2 Flow Rate FiO2 04/24/19 08:12 94 20 119/71 (87) 94 Room Air 04/24/19 07:08 98.0 98.0 EKG EKG [] Radiology/Procedures Radiology/Procedures [] Course & Med Decision Making Course & Med Decision Making Evaluation of patient in ER showed 68-year-old male patient presented to ER with plugging Almanza catheter.Irrigation was done and 300 ML bloody urine was drained with decrease of hematuria and patient felt comfortable. Patient was advised to follow-up with his urologist. Patient currently taking antibiotic for UTI. Dragon Disclaimer Dragon Disclaimer This electronic medical record was generated, in whole or in part, using a voice recognition dictation system. Departure Departure Impression: Primary Impression: Obstruction of Almanza catheter Disposition: 01 HOME, SELF-CARE (at 0801) Condition: IMPROVED Referrals: ROLO RAMSEY MD (PCP) Patient Instructions: Almanza Catheter Care, Adult Additional Instructions: Follow-up with your urologist in 2-3 days Return to ER if not getting better Problem Qualifiers Primary Impression: Obstruction of Almanza catheter Encounter type: initial encounter Qualified Codes: T83.091A - Other mechanical complication of indwelling urethral catheter, initial encounter HUONG SILVA MD Apr 24, 2019 08:02
[2019-04-24 08:12] VITALS: BP 119/71
== END 2019-04-24 08:16 | disposition home or self-care (01) ==
LOC: ER 06:55
DX: T83.038A Leakage of other urinary catheter, initial encounter (principal); Z98.890 Other specified postprocedural states; Z88.5 Allergy status to narcotic agent; Z88.8 Allergy status to other drugs, medicaments and biological substances; Y82.8 Other medical devices associated with adverse incidents; Y92.89 Other specified places as the place of occurrence of the external cause
CPT/HCPCS: 99284

== ENCOUNTER 2019-05-07 23:39 | Emergency (ER) | payer MEDICARE ==
[~2019-05-07] VITALS: Ht 188 cm; Wt 115.7 kg
[2019-05-07 23:43] VITALS: BP 139/112
--- NOTE | 2019-05-08 00:24 | PHYS DOC ---
Past Medical History Past Medical History: Cancer, Prostatitis Additional Past Medical Histor: LUNG CA,CLL,BLADDERCA, SKINCA Past Surgical History: Cancer Surgery, Knee Replacement Additional Past Surgical Histo: HERNIA,TUMOR FROM BLADDER, BACK, LUNG CA, L KNEE REPLACEMENT, RT UP LOBECTO Alcohol Use: None Drug Use: None Adult General Chief Complaint Chief Complaint: URINARY RETENTION HPI HPI Patient is a 68 year old male with complaint of urinary retention. Patient had prostate procedure recently and had Almanza catheter placement that was removed today by his urologist at [facility]. He states he went home and his urinary stream has been getting smaller and smaller and he started developing pressure. Patient complaining of pressure feeling around bladder without nausea and vomiting and fever and chills. He rates his discomfort as 4/10 in severity. Review of Systems Review of Systems Constitutional: Denies fever or chills [] Eyes: Denies change in visual acuity, redness, or eye pain [] HENT: Denies nasal congestion or sore throat [] Respiratory: Denies cough or shortness of breath [] Cardiovascular: No additional information not addressed in HPI [] GI: Denies abdominal pain, nausea, vomiting, bloody stools or diarrhea [] : Reports urinary retention. Musculoskeletal: Denies back pain or joint pain [] Integument: Denies rash or skin lesions [] Neurologic: Denies headache, focal weakness or sensory changes [] Endocrine: Denies polyuria or polydipsia [] Complete systems were reviewed and found to be within normal limits, except as documented in this note. Allergies Allergies Allergies Coded Allergies Type Severity Reaction Last Updated Verified oxycodone Allergy Intermediate RASH 09/05/18 Yes rituximab Allergy Intermediate Hives 09/05/18 Yes Physical Exam Physical Exam Constitutional: Well developed, well nourished, no acute distress, non-toxic appearance. [] HENT: Normocephalic, atraumatic, bilateral external ears normal, oropharynx moist, no oral exudates, nose normal. [] Eyes: PERRLA, EOMI, conjunctiva normal, no discharge. [] Neck: Normal range of motion, no tenderness, supple, no stridor. [] Cardiovascular:Heart rate regular rhythm, no murmur [] Lungs & Thorax: Bilateral breath sounds clear to auscultation [] Abdomen: Bowel sounds normal, soft, no tenderness, no masses, no pulsatile masses. [] Skin: Warm, dry, no erythema, no rash. [] Back: No tenderness, no CVA tenderness. [] Extremities: No tenderness, no cyanosis, no clubbing, ROM intact, no edema. [] Neurologic: Alert and oriented X 3, normal motor function, normal sensory function, no focal deficits noted. [] Psychologic: Affect normal, judgement normal, mood normal. [] Current Patient Data Vital Signs Vital Signs Date Time Temp Pulse Resp B/P (MAP) Pulse Ox O2 Delivery O2 Flow Rate FiO2 05/07/19 23:43 98.4 72 23 139/112 (121) 96 Room Air 98.4 EKG EKG [] Radiology/Procedures Radiology/Procedures [] Course & Med Decision Making Course & Med Decision Making Pertinent Labs and Imaging studies reviewed. (See chart for details) The nurses bladder scanned the patient and got 0 mL of urine. Discussed with patient and the patient appears to be having bladder spasms. Will d/c home. Patient has bladder spasm medication at home that he will take. Discussed with patient that if he feels like he is retaining urine throughout the night to return to ER. Also discussed following up with his urologist in the AM. Dragon Disclaimer Dragon Disclaimer This electronic medical record was generated, in whole or in part, using a voice recognition dictation system. Departure Departure Impression: Primary Impression: Spastic bladder Disposition: 01 HOME, SELF-CARE Condition: STABLE Referrals: ROLO RAMSEY MD (PCP) Additional Instructions: Thank you for visiting [facility]. We appreciate you trusting us with your care. If any additional problems come up don't hesitate to return to visit us. Please follow up with your primary care provider so they can plan additional care if needed and know about the problem that you had. If symptoms worsen come back to the Emergency Department. Any concerning symptoms that start such as chest pain, shortness of air, weakness or numbness on one side of the body, running high fevers or any other concerning symptoms return to the ER. Please return to ER if you feel that you are retaining urine. CHARLENE COLBERT APRN May 08, 2019 00:24
== END 2019-05-08 00:42 | disposition home or self-care (01) ==
LOC: ER 23:39
DX: N32.89 Other specified disorders of bladder (principal); Z98.890 Other specified postprocedural states; Z88.5 Allergy status to narcotic agent; Z88.8 Allergy status to other drugs, medicaments and biological substances
CPT/HCPCS: 99284-25

== ENCOUNTER → 2019-10-03 | Outpatient (CLI) | payer MEDICARE ==
[~2019-10-03] MED LIST changes: +CONTRAST GIVEN. MC PRN; +IOHEXOL 240 MG/ML 50ML VIAL. PO ONE; +IOHEXOL 300 MG/ML 100ML VIAL. IV ONE
--- NOTE | 2019-10-03 13:36 | RAD ---
CT CHEST ABD PELVIS W/CONTRAST Indication: Chronic lymphocytic leukemia. Exposure: One or more of the following individualized dose reduction techniques were utilized for this examination: 1. Automated exposure control 2. Adjustment of the mA and/or kV according to patient size 3. Use of iterative reconstruction technique. Technique: Intravenous contrast was given. Oral contrast was given. Comparison: 03/28/2019. CHEST: Bilateral gynecomastia has mildly progressed since the prior study. Ascending aorta measures 4.2 cm transverse, compatible with mild ectasia, unchanged since prior study. Mild aortic calcification. No evidence of aortic dissection. Proximal great vessels are patent. Main central pulmonary arteries are grossly patent. Coronary artery calcifications are again identified. No dominant thyroid mass is identified. No pericardial effusion. No evidence of pleural effusion. Enlarged axillary lymph nodes are again identified bilaterally. These have slightly increased in size. For example, a left axillary lymph node now measures 10 mm as compared with 6 mm on prior study. Another left axillary lymph node measures 17 mm short axis as compared with 11 mm previously. Right axillary lymph node measures 11 mm short axis, compared with 8 mm previously. Small mediastinal and hilar lymph nodes appears similar to the previous exam. There is some irregular opacity in the anterior right lower lung, greater than the prior study. This could represent atelectasis or infiltrate, or some scarring. Note there were some markings are previously, but they have progressed since that time. There is a subpleural nodular component which measures 11 x 11 mm, series 2, image 39, which has increased in size since previous exam, when it measured 7 x 6 mm. Generalized emphysema. No new dominant pulmonary mass is identified. No evidence of pneumothorax. Trachea and mainstem bronchi are patent. Degenerative spondylosis. No evidence of aggressive bone destruction. Abdomen pelvis: Patchy hepatic hypoattenuation, likely due to asymmetric steatosis of the liver. There is an area of slightly greater density in the left lobe as compared with the prior study measuring about 5 cm diameter, may just represent relatively preserved parenchyma, hepatic mass considered much less likely. Spleen is unremarkable. Pancreas unremarkable. No evidence of adrenal mass. Kidneys demonstrate symmetric enhancement without focal mass or hydronephrosis. Gallbladder is not distended, no evidence of calcified gallstone. The aorta is mildly calcified. No evidence of aortic aneurysm. Mildly enlarged portal lymph nodes node anterior to the inferior vena cava measures 17 mm short axis, compared with 14 mm on prior study. Aortocaval lymph nodes are mildly enlarged. For example noted to the left of the aorta measures 12 mm short axis, as compared with 9 mm on prior study. Enlarged iliac nodes are again seen. Left iliac node measures 20 mm short axis, compared with 15 mm previously. Right external iliac node measures 17 mm short axis, compared with 15 mm previously. Numerous small retroperitoneal lymph nodes are again identified and appear roughly similar to the prior study. No significant small bowel distention. No evidence of acute colitis. The appendix is not clearly seen. Surgical clips in the right lower quadrant. No evidence of ascites. No evidence of pneumoperitoneum. Urinary bladder demonstrates mild wall thickening. Prostatomegaly again seen with a probable TURP defect. Previously seen nodular thickening of the left urinary bladder is not as apparent on today's exam. Degenerative spondylosis of the spine is again seen, appearance and alignment are similar to the prior study. No evidence of aggressive destructive bone lesion. Transitional anatomy at the lumbosacral junction. IMPRESSION: 1. Ascending aortic ectasia, appears similar. 2. Mild progression of axillary lymph node enlargement previous exam, concerning for progressive disease. 3. Increased opacity within the anterior right lung, could represent a combination of infiltrate and consolidation. Although difficult to separate from these changes, subpleural nodule in this area appears to measure larger than on the previous exam, now measuring 11 mm as compared with 7 mm previously, potentially due to metastatic disease. Recommend observation on follow-up scan. 4. Patchy hepatic density likely due to geographic steatosis. There is now a well-defined 5 cm area of relative hyperattenuation in the left lobe, likely just due to focal sparing. Hepatic mass is considered less likely, but recommend observation on follow-up scan, or could be evaluated sooner with hepatic MRI. 5. Mild worsening of portal, retroperitoneal, and iliac lymph node enlargement since prior study, concerning for progressive disease. 6. Urinary bladder wall thickening with prostatomegaly. This may be due to outlet obstruction. Electronically signed by: Alfredo Lucas MD (10/03/2019 1:33 PM) [id number]
== END | disposition home or self-care (01) ==
LOC: CT 09:47
PROVIDERS: ATTEND Internal Medicine Hematology & Oncology
DX: C34.11 Malignant neoplasm of upper lobe, right bronchus or lung (principal); R59.0 Localized enlarged lymph nodes; I25.10 Atherosclerotic heart disease of native coronary artery without angina pectoris; I70.0 Atherosclerosis of aorta; J43.9 Emphysema, unspecified; M47.816 Spondylosis without myelopathy or radiculopathy, lumbar region
CPT/HCPCS: 71260; 74177; Q9966; Q9967

== ENCOUNTER → 2020-01-03 | Outpatient (CLI) | payer MEDICARE ==
--- NOTE | 2020-01-03 12:56 | RAD ---
CT scan of the chest, abdomen and pelvis with contrast 01/03/2020 CLINICAL HISTORY: Chronic lymphocytic leukemia. History of lung cancer. TECHNIQUE: After the oral and intravenous administration of contrast, contiguous, 5 mm axial sections were obtained through the chest, abdomen and pelvis. One or more of the following individualized dose reduction techniques were utilized for this study: 1. Automated exposure control. 2. Adjustment of the mA and/or kV according to patient size. 3. Use of iterative reconstruction technique. FINDINGS: Comparison study is dated 10/03/2019. Atherosclerotic calcification of the thoracic aorta and its branches is noted. The thoracic aorta is tortuous but tapers normally. The heart is mildly enlarged. Scattered coronary artery calcifications are seen. Slightly prominent hilar and mediastinal lymph nodes are seen which measure 5 mm to 1.6 cm in size. These are unchanged. Enlarged axillary lymph nodes are seen which measure 1 to 2 cm in size. These have decreased in size since the previous examination where they measured 1.5 to 2.5 cm in size. The patient is post right upper lobectomy. Moderate bullous emphysematous changes are seen involving both lungs. A pulmonary nodule is seen within the anterior lateral aspect of the right middle lobe. This measures 9 mm in greatest diameter. It has decreased in size since the previous study where it measured 1.1 cm in size. The right middle lobe infiltrate/atelectasis seen on the previous study has largely resolved. Areas of scarring are seen involving both lower lobes. No new pulmonary nodule is seen. No area of consolidation is seen. No pleural effusion or pneumothorax is noted. The liver parenchyma has a decreased attenuation consistent with fatty infiltration. The liver is mildly enlarged measuring 20 cm in length. Increased enhancement is seen within the posterior aspect of the right lobe of the liver which is unchanged since the previous examination. No focal mass is definitely visualized. The spleen, adrenal glands and kidneys are within normal limits. Atherosclerotic calcification of the abdominal aorta is seen. The abdominal aorta tapers normally. The gallbladder is contracted. Air and stool are seen throughout the colon. The patient is post appendectomy. There is no evidence of bowel obstruction. Enlarged retroperitoneal, mesenteric and periportal lymph nodes are seen which measure 1 to 3 cm in size. These have decreased in size since the previous examination where they measured 1.5 to 4 cm in size. Images through the pelvis demonstrate the urinary bladder distended with urine. Surgical clips are seen in the left inguinal region. Calcifications are seen within the pelvis consistent with phleboliths. No free fluid is seen. Enlarged pelvic lymph nodes are seen, left greater than right, which measure 1 to 2.8 cm in greatest diameter. These have decreased in size since the previous examination where they measured 1.5 to 3.2 cm in size. No inguinal lymphadenopathy is seen. Very mild S-shaped curvature of the thoracolumbar spine is noted. Degenerative changes are seen involving the thoracic throughout the lumbar spine along with both hips. IMPRESSION: 1. Interval decrease in size of the axillary lymphadenopathy. 2. 9 mm nodule is seen within the right middle lobe which has decreased in size since the previous study. 3. Interval improvement in the retroperitoneal, mesenteric, periportal and pelvic lymphadenopathy. Electronically signed by: Bill Lundberg MD (01/03/2020 12:54 PM) [id number]
== END ==
LOC: CT 09:15
PROVIDERS: ATTEND Internal Medicine Hematology & Oncology
DX: C34.11 Malignant neoplasm of upper lobe, right bronchus or lung (principal); C91.10 Chronic lymphocytic leukemia of B-cell type not having achieved remission; R91.8 Other nonspecific abnormal finding of lung field; R59.0 Localized enlarged lymph nodes; I70.0 Atherosclerosis of aorta; R16.0 Hepatomegaly, not elsewhere classified; J43.9 Emphysema, unspecified
CPT/HCPCS: 71260; 74177; Q9966; Q9967

== ENCOUNTER → 2020-04-06 | Outpatient (CLI) | payer MEDICARE ==
--- NOTE | 2020-04-06 17:13 | RAD ---
EXAM: CT Chest, Abdomen, and Pelvis with IV contrast INDICATION: Reason: LEUKEMIA. MALIGNANT NEOPLASM OF RIGHT LUNG / Spl. Instructions: IV OMNI 300 75 MLS AND PO OMNI 240 30 MLS / History: TECHNIQUE: Multi-detector row CT images were acquired from the thoracic inlet through the ischial tuberosities with the use of IV contrast. Sagittal and coronal images were acquired from the transaxial data. All CT scans performed at this facility utilize dose optimization techniques as appropriate to the exam, including the following: Automated exposure control and adjustment of the mA and/or KV according to patient size (this includes techniques or standardized protocols for targeted exams where dose is indication/reason for exam). IV CONTRAST: Administered ORAL CONTRAST: Administered COMPARISON: Chest abdomen pelvis CT with IV contrast of 01/03/2020 FINDINGS: CHEST: CARDIOVASCULAR: Stable ectasia of the ascending thoracic aorta at 4.4 cm diameter. Borderline heart enlargement without pericardial effusion, stable. Coronary artery calcifications. No filling defects in the main or central pulmonary arteries although contrast bolus opacification is not optimized. Bovine aortic arch. MEDIASTINUM & MICHELLE: Mild bilateral hilar adenopathy is present, slightly more conspicuous in the interval. Stable minimally prominent mediastinal lymph nodes. LUNGS: In the background of moderate panlobular pattern emphysema and previous right upper lobectomy is noted a new right upper lobe irregular nodule measuring 8 mm (axial image 14 of series 2) and marginally increase in size of a nodule along the major fissure in the left upper lobe measuring 7.5 mm (image 25 of series 2), up from 6.4 mm previously (image 24 of series 2 on the prior study). The previously reported 9 mm nodule in the right middle lobe is unchanged at 9 mm. PLEURAL SPACE: No pleural effusions or pneumothorax. OSSEOUS & SOFT TISSUE: Multilevel thoracic spinal degenerative changes. No fracture or aggressive osseous lesions. Mild bilateral gynecomastia is stable. Marginally increased left greater than right bilateral axillary adenopathy, as evidenced by greater cortical thickening in the dominant left level 1 axillary lymph node (image 13 series 2 this exam compared with image 18 series 2 on the prior study). ABDOMEN/PELVIS: LIVER: Diffuse fatty infiltration of focal sparing near the gallbladder fossa and inferior aspect of hepatic segment 3. BILIARY SYSTEM: Gallbladder is unremarkable. Bile ducts are not dilated. PANCREAS: Unremarkable SPLEEN: Unremarkable ADRENALS: Unremarkable KIDNEYS & URETERS: Unremarkable BLADDER: Unremarkable REPRODUCTIVE ORGANS: Prostate gland measures 5 cm transverse diameter. GASTROINTESTINAL: The stomach, small bowel, and colon are unremarkable. Appendix is surgically absent. MESENTERY/PERITONEUM/RETROPERITONEUM: Unremarkable VASCULAR: Unremarkable LYMPH NODES: Stable mild prominent mesenteric and periportal lymph nodes. The largest are apparent paracaval node measuring 3.9 x 1.6 cm (image 25 series 4, compared with image 66 of series 2 on the prior study). Stable mild pelvic adenopathy, largest representing a left external iliac lymph node measuring 1.3 cm in short axis diameter. OSSEOUS & SOFT TISSUES: Postoperative changes from left inguinal hernia repair. IMPRESSION: Right upper lobectomy and panlobular emphysema with marginal increase in lymphadenopathy in the chest and abdomen and a new apical segment right lower lobe 8 mm pulmonary nodule, for which short-term follow-up is recommended. Recommend chest CT in 3-6 months in further evaluation. Electronically signed by: Candice Richter MD (04/06/2020 5:10 PM) [id number]
== END | disposition home or self-care (01) ==
LOC: CT 08:55
PROVIDERS: ATTEND Internal Medicine Hematology & Oncology
DX: C34.11 Malignant neoplasm of upper lobe, right bronchus or lung (principal); C91.10 Chronic lymphocytic leukemia of B-cell type not having achieved remission; I77.810 Thoracic aortic ectasia; J43.1 Panlobular emphysema; I25.10 Atherosclerotic heart disease of native coronary artery without angina pectoris; R59.9 Enlarged lymph nodes, unspecified; M47.814 Spondylosis without myelopathy or radiculopathy, thoracic region; N62 Hypertrophy of breast; Z90.49 Acquired absence of other specified parts of digestive tract; Z48.815 Encounter for surgical aftercare following surgery on the digestive system
CPT/HCPCS: 71260; 74177; Q9966; Q9967

== ENCOUNTER 2021-03-29 09:07 | Day surgery (SDC) | payer MEDICARE ==
[~2021-03-29] VITALS: Ht 185.4 cm; Wt 115.9 kg
[~2021-03-29 09:07] MED LIST changes: +BUDE10.2 IH; -CONTRAST GIVEN. MC PRN; +DEXAMETHASONE SOD PHOS 4 MG/ML VIAL ONE; +HYDROmorphone 2 MG/ML VIAL IVP PRN; +IBRU140C PO; -IOHEXOL 240 MG/ML 50ML VIAL. PO ONE; -IOHEXOL 300 MG/ML 100ML VIAL. IV ONE; +IV RINGERS,LACTATED 1000ML 1,000 ML IV SCH; +MORPHINE SULFATE 2 MG/ML INJ. IVP PRN; +MULT-245 PO; +ONDANSETRON PF 4 MG/2 ML VIAL. ONE; +PROCHLORPERAZINE 10 MG/2 ML VIAL. IVP PRN; +PROPOFOL 10 MG/ML (20ML) VIAL. IV ONE; +ROCURONIUM 50 MG/5 ML VIAL. ONE; +SPIR25TA5 PO; +TORS20TA2 PO; +VENTOLIN HFA18 GM INH; +fentaNYL PF VIAL 100 MCG/2 ML VIAL IVP PRN
[2021-03-29] MEDS ORDERED: IPRATRPIUM/ALBUTEROL 0.5/2.5MG 3 ML NEBU. NEB ONE (09:30)
[2021-03-29 09:37] VITALS: BP 146/76
[2021-03-29] MEDS ORDERED: BUPIVACAINE-EPI 0.5%-1:200000 MPF 30 ML VIAL. ONE (09:43)
[2021-03-29] MEDS ORDERED: GLYCOPYRROLATE 1 MG/5 ML VIAL. ONE (10:48)
[2021-03-29] MEDS ORDERED: NEOSTIGMINE METHYLSULFATE 5 MG/5 ML SYRINGE. ONE (10:49)
[2021-03-29] MEDS ORDERED: fentaNYL PF VIAL 100 MCG/2 ML VIAL ONE ×2 (11:17→12:19)
--- NOTE | 2021-03-29 11:21 | PDOC4 ---
Operative Note Operative Note Operative Note: Preoperative Diagnosis: Umbilical hernia Postoperative Diagnosis: Same Procedure: Umbilical hernia repair with mesh Surgeon: Ricky Bakery Helper: Lola JOHNSON Anesthesia: General EBL: 10 mL Specimen: Hernia sac to pathology Drains: None Complications: None Indication: The patient is a 70-year-old male who is referred with an umbilical hernia. He was offered surgical repair. The risks of surgery were discussed which include bleeding, infection, pain, recurrence, mesh reaction, anesthetic risk, potential need for additional surgery procedure. He understands and would like to proceed. Description: The patient was taken to the operating room and placed supine on the operating table. General anesthesia was performed. The abdomen was prepped with ChloraPrep and draped with sterile towels, sheets, and an Ioban. A curved infraumbilical incision was made in the skin with a scalpel. Cautery dissection was carried down to the fascia. The umbilical tissue was elevated off the fascia exposing the defect. There was some inflamed appearing hernia sac that was excised and sent to pathology. A preperitoneal plane was developed circumferentially with blunt dissection. A small Ventralex St mesh was then placed in this preperitoneal plane. The mesh was sutured in position with 0 Prolene in a horizontal mattress fashion. The fascial edges were closed over the mesh with 0 Prolene. The umbilicus was secured back to the fascia with 0 Vicryl. The subcutaneous tissue was closed with 3-0 Vicryl and the skin was approximated with 4-0 Monocryl. The skin was infiltrated with half percent Marcaine with epinephrine. Steri-Strips and a sterile dressing were applied. The patient tolerated the procedure well and was sent to the recovery room in stable condition. At the end of the case all counts were correct. KIESHA EDUARDO MD Mar 29, 2021 11:20
[2021-03-29] MEDS ORDERED: HYDR-2761 PO (11:23)
--- NOTE | 2021-03-29 11:25 | DISCH ---
DISCHARGE INSTRUCTIONS Condition on Discharge Condition on Discharge: Stable Activity After Discharge Activity Instructions for Disc: Other, see below (No lifiting over 20 lbs, strenuous activity X 4 weeks) Diet after Discharge Diet after Discharge: Regular Wound Incision Care Wound/Incision Care: Other, see below (keep dressing clean and dry X 72 hours, may thren remove and shower) Follow-Up Follow up with: Dr Eduardo in office in 2 weeks, call for appointment [phone] KIESHA EDUARDO MD Mar 29, 2021 11:25
[2021-03-29] MEDS: fentaNYL PF VIAL 100 MCG/2 ML VIAL IVP PRN ×3 (11:28→12:21)
[2021-03-29 12:11] VITALS: BP 123/68
[2021-03-29] MEDS ORDERED: HYDROcodone/APAP 5/325MG 1 TAB TABLET PO ONE ×2 (12:15)
--- NOTE | 2021-03-30 15:10 | PATHOLOGY ---
[facility] Accession Number: [id number] . 01 Material submitted: . umbilicus - UMBILICAL HERNIA SAC . 01 Clinical history: . UMBILICAL HERNIA REPAIR . 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 (JPM:pit; 03/30/2021) P 03/30/2021 1447 Local . 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 (JPM:pit; 03/30/2021) . 02 Electronically signed: . Betito Rojas MD, Pathologist NPI- [id number] . 01 Gross description: . The specimen is received in formalin, labeled "Jose Ceron Oniel, umbilical hernia repair". It consists of a borjas-yellow, focally hemorrhagic, irregular fatty soft tissue segment measuring 3.5 x 2.5 x 2.0 cm. Sectioning reveals yellow lobulated cut surfaces. Curing Oven Tender sections are submitted in A1. (MRF; 03/29/2021) MFE/MFE 03/29/2021 1608 Local . 02 Pathologist provided ICD-10: K42.9 . 02 CPT . 044224 Specimen Comment: A courtesy copy of this report has been sent to [phone] Specimen Comment: [id number] Specimen Comment: Report sent to / DR RAMSEY Performed at: 01 [facility] [address], [place], [place] [id number] MD Adonis French MD Phone: [phone] Performed at: 02 [facility] [address] [place], [place] [id number] MD Betito Rojas MD Phone: [phone]
== END 2021-03-29 12:59 | disposition home or self-care (01) ==
LOC: SURG 09:07
PROVIDERS: ATTEND Surgery
DX: K42.9 Umbilical hernia without obstruction or gangrene (principal); J44.9 Chronic obstructive pulmonary disease, unspecified; I50.9 Heart failure, unspecified; F41.9 Anxiety disorder, unspecified; M19.90 Unspecified osteoarthritis, unspecified site; Z85.828 Personal history of other malignant neoplasm of skin; E66.9 Obesity, unspecified; F17.210 Nicotine dependence, cigarettes, uncomplicated; Z86.718 Personal history of other venous thrombosis and embolism; Z92.21 Personal history of antineoplastic chemotherapy; Z92.3 Personal history of irradiation; Z98.890 Other specified postprocedural states
CPT/HCPCS: 49585; A4364; A4930; C1781; J0690; J1100; J2405; J2704; J2710; J3010; J3490; 88302; A4452

== ENCOUNTER → 2021-04-22 | Outpatient (CLI) | payer MEDICARE ==
[2021-03-29 12:11] VITALS: BP 123/68
[~2021-04-22] MED LIST changes: -DEXAMETHASONE SOD PHOS 4 MG/ML VIAL ONE; +HYDR-2761 PO; -HYDROmorphone 2 MG/ML VIAL IVP PRN; -IV RINGERS,LACTATED 1000ML 1,000 ML IV SCH; -MORPHINE SULFATE 2 MG/ML INJ. IVP PRN; -ONDANSETRON PF 4 MG/2 ML VIAL. ONE; -PROCHLORPERAZINE 10 MG/2 ML VIAL. IVP PRN; -PROPOFOL 10 MG/ML (20ML) VIAL. IV ONE; -ROCURONIUM 50 MG/5 ML VIAL. ONE; -fentaNYL PF VIAL 100 MCG/2 ML VIAL IVP PRN
--- NOTE | 2021-04-22 13:43 | KCIC ---
CT HEAD/BRAIN WO History: Acute intractable headache. Posterior headache for 3 weeks. Bladder and lung cancer. Blood t hinners. Comparison: None. Technique: Noncontrast CT imaging was performed of the head. Findings: No intracranial hemorrhage. No mass effect. No hydrocephalus. No evidence of acute territorial infar ction. Imaged orbits are unremarkable. Imaged paranasal sinuses and mastoid air cells are clear. The scalp a nd calvarium are unremarkable. Impression: 1. No acute intracranial abnormality. ----- Exposure: One or more of the following individualized dose reduction techniques were utilized for thi s examination: 1. Automated exposure control 2. Adjustment of the mA and/or kV according to patient size 3. Use of iterative reconstruction technique. Electronically signed by: Cristopher Woodard MD (04/22/2021 1:40 PM) [id number]
== END ==
LOC: KCIC CT 13:07
PROVIDERS: ATTEND Family Medicine
DX: R51.9 Headache, unspecified (principal)
CPT/HCPCS: 70450